=== PATIENT | male | born 2000 | race Caucasian/White ===

== ENCOUNTER 2020-10-03 07:19 | Emergency (ER) | payer OTHER ==
--- NOTE | 2020-10-03 07:24 | EDM.PDOC ---
ED HPI GENERAL MEDICAL PROBLEM - General Stated Complaint: FEVER Time Seen by Provider: 10/03/20 07:19 Source of Information: Reports: Patient History Limitations: Reports: No Limitations - History of Present Illness INITIAL COMMENTS - FREE TEXT/NARRATIVE: 20-year-old male with history of Covid 4 months ago presents with constitutional symptoms include fever, chills, diffuse myalgia, generalized malaise, diffuse mild headache, dizziness, anosmia since Friday afternoon. He denies cough, chest pain, abdominal pain, neck pain or neck stiffness, sore throat, runny nose. ROS: A 10-point review of systems, other than pertinent positives and negatives as stated per HPI, is otherwise negative Past medical history: No additional pertinent history Past Surgical history: No additional pertinent history Social history: No additional pertinent history Family history: No additional pertinent history PHYSICAL EXAM General: AOx4, GCS = 15, No distress HEENT: dry mucous membrane Neck: supple, no meningismus, no Kernig or Brudzinski Cardiac: S1S2 RRR Respiratory: CTAB, no crackles or rales, no wheezing Abdomen: Soft, nontender, no rebound or guarding, nondistended, no pulsatile mass. Back: nontender Musculoskeletal: NVI distally, no deformity Neuro: No focal deficits, CN 2 - 12 WNL. Headache Pain Score (Numeric/FACES): 8 - Related Data Allergies Allergy/AdvReac Type Severity Reaction Status Date / Time No Known Allergies Allergy Verified 10/03/20 07:32 Home Meds: Home Meds . [No Known Home Meds] 10/03/20 [History] ED ROS GENERAL - Review of Systems Review Of Systems: See Below (see dictation) ED EXAM, GENERAL - Physical Exam Exam: See Below (see dictation) Course - Vital Signs Last Recorded V/S: Last Vital Signs Temp 99.6 F 10/03/20 07:35 Pulse 104 H 10/03/20 08:39 Resp 20 10/03/20 08:39 BP 127/55 L 10/03/20 08:39 Pulse Ox 98 10/03/20 08:39 - Orders/Labs/Meds Orders: Active Orders 24 hr Category Date Time Status CULTURE BLOOD [BC] Stat Lab 10/03/20 07:55 Received CULTURE BLOOD [BC] Stat Lab 10/03/20 08:15 Received PROCALCITONIN [REF] Stat Lab 10/03/20 07:52 Received Sodium Chloride 0.9% [Saline Flush] Med 10/03/20 07:53 Active 10 ml FLUSH ASDIRECTED PRN Sodium Chloride 0.9% [Saline Flush] Med 10/03/20 07:53 Active 2.5 ml FLUSH ASDIRECTED PRN Blood Culture x2 Reflex Set [OM.PC] Stat Oth 10/03/20 07:54 Ordered Saline Lock Insert [OM.PC] Stat Oth 10/03/20 07:54 Ordered Medication Orders Sodium Chloride (Saline Flush) 10 ml FLUSH ASDIRECTED PRN PRN Reason: Keep Vein Open Last Admin: 10/03/20 07:58 Dose: 10 ml Documented by: GIORGIO Sodium Chloride (Saline Flush) 2.5 ml FLUSH ASDIRECTED PRN PRN Reason: Keep Vein Open Last Admin: 10/03/20 07:58 Dose: 2.5 ml Documented by: GIORGIO Labs: Laboratory Tests 10/03/20 10/03/20 10/03/20 Range/Units 07:52 07:52 07:52 WBC 5.60 (4.0-11.0) K/uL RBC 5.17 (4.50-5.90) M/uL Hgb 13.9 (13.0-17.0) g/dL Hct 42.2 (38.0-50.0) % MCV 81.6 (80.0-98.0) fL MCH 26.9 L (27.0-32.0) pg MCHC 32.9 (31.0-37.0) g/dL RDW Std Deviation 42.3 (28.0-62.0) fl RDW Coeff of Lius M 14 (11.0-15.0) % Plt Count 168 (150-400) K/uL MPV 10.90 (7.40-12.00) fL Neut % (Auto) 67.7 (48.0-80.0) % Lymph % (Auto) 24.6 (16.0-40.0) % Fleming % (Auto) 7.3 (0.0-15.0) % Eos % (Auto) 0.2 (0.0-7.0) % Baso % (Auto) 0.2 (0.0-1.5) % Neut # (Auto) 3.8 (1.4-5.7) K/uL Lymph # (Auto) 1.4 (0.6-2.4) K/uL Fleming # (Auto) 0.4 (0.0-0.8) K/uL Eos # (Auto) 0.0 (0.0-0.7) K/uL Baso # (Auto) 0.0 (0.0-0.1) K/uL Nucleated RBC % 0.0 /100WBC Nucleated RBCs # 0 K/uL INR APTT (18.6-31.3) SEC Lactate (0.20-2.00) mmol/L Sodium 138 (136-148) mmol/L Potassium 4.0 (3.5-5.1) mmol/L Chloride 105 (98-107) mmol/L Carbon Dioxide 22.4 (21.0-32.0) mmol/L BUN 13 (7.0-18.0) mg/dL Creatinine 1.3 (0.8-1.3) mg/dL Est Cr Clr Drug Dosing 86.96 mL/min Estimated GFR (MDRD) > 60.0 ml/min Glucose 128 H (74-106) mg/dL Calcium 8.7 (8.5-10.1) mg/dL Phosphorus 3.4 (2.6-4.7) mg/dL Magnesium 1.7 L (1.8-2.4) mg/dL Ferritin 230 (26-388) ng/mL Total Bilirubin 0.8 (0.2-1.0) mg/dL AST 42 H (15-37) IU/L ALT 74 H (14-63) IU/L Alkaline Phosphatase 156 H (46-116) U/L Lactate Dehydrogenase (81-234) U/L Creatine Kinase 66 (26-308) U/L C-Reactive Protein (0.00-0.90) mg/dL Total Protein 7.1 (6.4-8.2) g/dL Albumin 3.7 (3.4-5.0) g/dL Globulin 3.4 (2.6-4.0) g/dL Albumin/Globulin Ratio 1.1 (0.9-1.6) Influenza Type A RNA (NEGATIVE) Influenza Type B RNA (NEGATIVE) SARS-CoV-2 RNA (GARY) (NEGATIVE) 10/03/20 10/03/20 10/03/20 Range/Units 07:52 07:52 07:52 WBC (4.0-11.0) K/uL RBC (4.50-5.90) M/uL Hgb (13.0-17.0) g/dL Hct (38.0-50.0) % MCV (80.0-98.0) fL MCH (27.0-32.0) pg MCHC (31.0-37.0) g/dL RDW Std Deviation (28.0-62.0) fl RDW Coeff of Luis M (11.0-15.0) % Plt Count (150-400) K/uL MPV (7.40-12.00) fL Neut % (Auto) (48.0-80.0) % Lymph % (Auto) (16.0-40.0) % Fleming % (Auto) (0.0-15.0) % Eos % (Auto) (0.0-7.0) % Baso % (Auto) (0.0-1.5) % Neut # (Auto) (1.4-5.7) K/uL Lymph # (Auto) (0.6-2.4) K/uL Fleming # (Auto) (0.0-0.8) K/uL Eos # (Auto) (0.0-0.7) K/uL Baso # (Auto) (0.0-0.1) K/uL Nucleated RBC % /100WBC Nucleated RBCs # K/uL INR 1.13 APTT 25.4 (18.6-31.3) SEC Lactate 1.1 (0.20-2.00) mmol/L Sodium (136-148) mmol/L Potassium (3.5-5.1) mmol/L Chloride (98-107) mmol/L Carbon Dioxide (21.0-32.0) mmol/L BUN (7.0-18.0) mg/dL Creatinine (0.8-1.3) mg/dL Est Cr Clr Drug Dosing mL/min Estimated GFR (MDRD) ml/min Glucose (74-106) mg/dL Calcium (8.5-10.1) mg/dL Phosphorus (2.6-4.7) mg/dL Magnesium (1.8-2.4) mg/dL Ferritin (26-388) ng/mL Total Bilirubin (0.2-1.0) mg/dL AST (15-37) IU/L ALT (14-63) IU/L Alkaline Phosphatase (46-116) U/L Lactate Dehydrogenase 250 H (81-234) U/L Creatine Kinase (26-308) U/L C-Reactive Protein 5.50 H (0.00-0.90) mg/dL Total Protein (6.4-8.2) g/dL Albumin (3.4-5.0) g/dL Globulin (2.6-4.0) g/dL Albumin/Globulin Ratio (0.9-1.6) Influenza Type A RNA (NEGATIVE) Influenza Type B RNA (NEGATIVE) SARS-CoV-2 RNA (GARY) (NEGATIVE) 10/03/20 Range/Units 08:03 WBC (4.0-11.0) K/uL RBC (4.50-5.90) M/uL Hgb (13.0-17.0) g/dL Hct (38.0-50.0) % MCV (80.0-98.0) fL MCH (27.0-32.0) pg MCHC (31.0-37.0) g/dL RDW Std Deviation (28.0-62.0) fl RDW Coeff of Luis M (11.0-15.0) % Plt Count (150-400) K/uL MPV (7.40-12.00) fL Neut % (Auto) (48.0-80.0) % Lymph % (Auto) (16.0-40.0) % Fleming % (Auto) (0.0-15.0) % Eos % (Auto) (0.0-7.0) % Baso % (Auto) (0.0-1.5) % Neut # (Auto) (1.4-5.7) K/uL Lymph # (Auto) (0.6-2.4) K/uL Fleming # (Auto) (0.0-0.8) K/uL Eos # (Auto) (0.0-0.7) K/uL Baso # (Auto) (0.0-0.1) K/uL Nucleated RBC % /100WBC Nucleated RBCs # K/uL INR APTT (18.6-31.3) SEC Lactate (0.20-2.00) mmol/L Sodium (136-148) mmol/L Potassium (3.5-5.1) mmol/L Chloride (98-107) mmol/L Carbon Dioxide (21.0-32.0) mmol/L BUN (7.0-18.0) mg/dL Creatinine (0.8-1.3) mg/dL Est Cr Clr Drug Dosing mL/min Estimated GFR (MDRD) ml/min Glucose (74-106) mg/dL Calcium (8.5-10.1) mg/dL Phosphorus (2.6-4.7) mg/dL Magnesium (1.8-2.4) mg/dL Ferritin (26-388) ng/mL Total Bilirubin (0.2-1.0) mg/dL AST (15-37) IU/L ALT (14-63) IU/L Alkaline Phosphatase (46-116) U/L Lactate Dehydrogenase (81-234) U/L Creatine Kinase (26-308) U/L C-Reactive Protein (0.00-0.90) mg/dL Total Protein (6.4-8.2) g/dL Albumin (3.4-5.0) g/dL Globulin (2.6-4.0) g/dL Albumin/Globulin Ratio (0.9-1.6) Influenza Type A RNA NEGATIVE (NEGATIVE) Influenza Type B RNA NEGATIVE (NEGATIVE) SARS-CoV-2 RNA (GARY) NEGATIVE (NEGATIVE) Meds: Medications Generic Name Dose Route Start Last Admin Trade Name Freq PRN Reason Stop Dose Admin Sodium Chloride 10 ml 10/03/20 07:53 10/03/20 07:58 Saline Flush FLUSH 10 ml ASDIRECTED PRN Administration Keep Vein Open Sodium Chloride 2.5 ml 10/03/20 07:53 10/03/20 07:58 Saline Flush FLUSH 2.5 ml ASDIRECTED PRN Administration Keep Vein Open Discontinued Medications Generic Name Dose Route Start Last Admin Trade Name Giorgi PRN Reason Stop Dose Admin Diphenhydramine HCl 50 mg 10/03/20 09:34 10/03/20 09:44 Benadryl IVPUSH 10/03/20 09:35 50 mg ONETIME ONE Administration Lactated Ringer's 1,000 mls @ 999 mls/hr 10/03/20 07:53 10/03/20 07:58 Ringers, Lactated IV 10/03/20 08:53 999 mls/hr .BOLUS ONE Administration Ketorolac Tromethamine 30 mg 10/03/20 09:34 10/03/20 09:44 Toradol IVPUSH 10/03/20 09:35 30 mg ONETIME ONE Administration Metoclopramide HCl 10 mg 10/03/20 09:34 10/03/20 09:44 Reglan IVPUSH 10/03/20 09:35 10 mg ONETIME ONE Administration Ondansetron HCl 4 mg 10/03/20 07:49 10/03/20 08:27 Zofran Odt PO 10/03/20 07:50 Not Given ONETIME ONE Ondansetron HCl 4 mg 10/03/20 07:56 10/03/20 07:58 Zofran IVPUSH 10/03/20 07:57 4 mg ONETIME ONE Administration Ondansetron HCl Confirm 10/03/20 07:56 10/03/20 08:27 Zofran Administered 10/03/20 07:57 Not Given Dose 4 mg .ROUTE .[facility] ONE - Re-Assessments/Exams Free Text/Narrative Re-Assessment/Exam: 10/03/20 10:21 After IVF, Reglan, Benadryl, Toradol in the ER, the patient improved and is currently stable for discharge. I performed a repeat exam and did not appreciate new abnormal findings. Patient exhibits normal vital signs and has a normal gait on road test. I advised the patient to return to the ER for reevaluation if symptoms worsened, including fever, worsening pain, or any other worrisome symptoms. I instructed the patient to follow up with their PCP within 2-3 days. MEDICAL DECISION MAKING: I reviewed the patients past medical records, lab and radiographic findings. I discussed the case with the patient. My differential diagnosis included: Viral illness, Covid, influenza. Patient complains of mild diffuse headache, no nuchal rigidity or neck pain or neck stiffness, he was afebrile and no leukocytosis, I do not suspect meningitis or encephalitis. Departure - Departure Time of Disposition: 10:24 Disposition: Home, Self-Care 01 Condition: Good Clinical Impression: Viral illness - Discharge Information *PRESCRIPTION DRUG MONITORING PROGRAM REVIEWED*: Not Applicable *COPY OF PRESCRIPTION DRUG MONITORING REPORT IN PATIENT AVINASH: Not Applicable Instructions: Viral Illness, Adult Referrals: Sheng العلي MD [Primary Care Provider] - 1 Week Forms: ED Department Discharge Additional Instructions: The need for follow-up, as well as the timing and circumstances, are variable depending upon the specifics of your emergency department visit. If you don't have a primary care physician on staff, we will provide you with a referral. We always advise you to contact your personal physician following an emergency department visit to inform them of the circumstance of the visit and for follow-up with them and/or the need for any referrals to a consulting specialist. The emergency department will also refer you to a specialist when appropriate. This referral assures that you have the opportunity for follow-up care with a specialist. All of these measure are taken in an effort to provide you with optimal care, which includes your follow-up. Under all circumstances we always encourage you to contact your private physician who remains a resource for coordinating your care. When calling for follow-up care, please make the office aware that this follow-up is from your recent emergency room visit. If for any reason you are refused follow-up, please contact the [facility] Emergency Department at and asked to speak to the emergency department charge nurse. If you do not have a primary care doctor, please follow up with the clinics below within 3-5 days. [facility] - Primary Care [address] [place] [address] [place] [id number] [facility] [address] [place] [address] Sepsis Event Note (ED) - Focused Exam Vital Signs: Vital Signs Temp Pulse Resp BP Pulse Ox 10/03/20 08:39 104 H 20 127/55 L 98 10/03/20 07:35 99.6 F 103 H 18 126/51 L 96 - My Orders Last 24 Hours: My Active Orders 10/03/20 07:52 PROCALCITONIN [REF] Stat 10/03/20 07:53 Sodium Chloride 0.9% [Saline Flush] 10 ml FLUSH ASDIRECTED PRN Sodium Chloride 0.9% [Saline Flush] 2.5 ml FLUSH ASDIRECTED PRN 10/03/20 07:54 Blood Culture x2 Reflex Set [OM.PC] Stat Saline Lock Insert [OM.PC] Stat 10/03/20 07:55 CULTURE BLOOD [BC] Stat 10/03/20 08:15 CULTURE BLOOD [BC] Stat - Assessment/Plan Last 24 Hours: My Active Orders 10/03/20 07:52 PROCALCITONIN [REF] Stat 10/03/20 07:53 Sodium Chloride 0.9% [Saline Flush] 10 ml FLUSH ASDIRECTED PRN Sodium Chloride 0.9% [Saline Flush] 2.5 ml FLUSH ASDIRECTED PRN 10/03/20 07:54 Blood Culture x2 Reflex Set [OM.PC] Stat Saline Lock Insert [OM.PC] Stat 10/03/20 07:55 CULTURE BLOOD [BC] Stat 10/03/20 08:15 CULTURE BLOOD [BC] Stat
[2020-10-03] MEDS ORDERED: Ondansetron 4 MG Tab.DIS PO ONE (07:49)
[2020-10-03] MEDS ORDERED: Sodium Chloride 0.9% 2.5 ML Syringe FLUSH PRN (07:53)
[2020-10-03] MEDS ORDERED: Sodium Chloride 0.9% 10 ML Syringe FLUSH PRN (07:53)
[2020-10-03] MEDS ORDERED: Lactated Ringers 1,000 ML IV ONE (07:53)
[2020-10-03] MEDS ORDERED: Ondansetron 4 MG/2 ML SDV ONE (07:56)
[2020-10-03] MEDS ORDERED: Ondansetron 4 MG/2 ML SDV IVPUSH ONE (07:56)
[2020-10-03 08:24] LABS: BLOOD UREA NITROGEN,BUN 13 mg/dL (7.0-18.0); CARBON DIOXIDE,CO2 22.4 mmol/L (21.0-32.0); CHLORIDE,CL 105 mmol/L (98-107); GLUCOSE RANDOM 128 mg/dL (74-106); SODIUM,NA 138 mmol/L (136-148)
[2020-10-03 08:47] LABS: CORONAVIRUS COVID-19 NAA NEGATIVE (NEGATIVE); INFLUENZA A NAA NEGATIVE (NEGATIVE); INFLUENZA B NAA NEGATIVE (NEGATIVE)
[2020-10-03] MEDS ORDERED: Ketorolac 30 MG/ML SDV IVPUSH ONE (09:34)
[2020-10-03] MEDS ORDERED: diphenhydrAMINE 50 MG/ML SDV IVPUSH ONE (09:34)
[2020-10-03] MEDS ORDERED: Metoclopramide 10 MG/2 ML SDV IVPUSH ONE (09:34)
== END 2020-10-03 10:54 | disposition home or self-care (01) ==
LOC: MW.ED 07:19
DX: B34.9 Viral infection, unspecified (principal); Z20.822 Contact with and (suspected) exposure to COVID-19
CPT/HCPCS: 0240U; 36415; 80053; 82550; 82728; 83605; 83615; 83735; 84100; 84145; 85025; 85610; 85730; 86140; 87040; 96374; 96375; 99283; J1200; J1885; J2405; J2765; J7120

== ENCOUNTER 2022-01-07 20:22 | Emergency (ER) | payer OTHER ==
[2022-01-07] MEDS ORDERED: Ketorolac 30 MG/ML SDV IM ONE (20:36)
[2022-01-07 21:21] LABS: BLOOD UREA NITROGEN,BUN 24 mg/dL (7.0-18.0); CARBON DIOXIDE,CO2 27.3 mmol/L (21.0-32.0); CHLORIDE,CL 105 mmol/L (98-107); GLUCOSE RANDOM 117 mg/dL (74-106); POTASSIUM,K 4.3 mmol/L (3.5-5.1); SODIUM,NA 142 mmol/L (136-148)
== END 2022-01-07 22:08 | disposition home or self-care (01) ==
LOC: MW.ED 20:22
DX: N20.0 Calculus of kidney (principal); Z86.16 Personal history of COVID-19
CPT/HCPCS: 36415; 74176; 80048; 81001; 85025; 96372; 99284; J1885; 99283

== ENCOUNTER 2022-01-28 08:09 | Emergency (ER) | payer OTHER ==
[2022-01-28] MEDS ORDERED: Ibuprofen 600 MG Tab PO ONE (08:53)
[2022-01-28] MEDS ORDERED: Acetaminophen/HYDROcodone 325-5 MG Tab PO ONE (08:54)
[2022-01-28] MEDS ORDERED: Bacitracin Oint 1 GM U/D Packet TOP ONE (08:54)
== END 2022-01-28 09:47 | disposition home or self-care (01) ==
LOC: MW.ED 08:09
DX: T23.201A Burn of second degree of right hand, unspecified site, initial encounter (principal); Z86.16 Personal history of COVID-19; X08.8XXA Exposure to other specified smoke, fire and flames, initial encounter; Y99.0 Civilian activity done for income or pay
CPT/HCPCS: 16020; 99283; A9270

== ENCOUNTER 2022-09-17 00:50 | Emergency (ER) | payer OTHER ==
[2022-09-17] MEDS ORDERED: Sodium Chloride 0.9% 10 ML Syringe FLUSH PRN (01:09)
[2022-09-17] MEDS ORDERED: Sodium Chloride 0.9% 2.5 ML Syringe FLUSH PRN (01:09)
[2022-09-17 02:10] LABS: CARBON DIOXIDE,CO2 27.2 mmol/L (21.0-32.0)
[2022-09-17] MEDS ORDERED: Ondansetron 4 MG/2 ML SDV IVPUSH ONE (04:02)
[2022-09-17] MEDS ORDERED: fentaNYL 50 MCG/ML SDV IVPUSH ONE (04:03)
[2022-09-17] MEDS ORDERED: Ketorolac 30 MG/ML SDV IVPUSH ONE (04:11)
== END 2022-09-17 04:41 | disposition home or self-care (01) ==
LOC: MW.ED 00:50
DX: N13.5 Crossing vessel and stricture of ureter without hydronephrosis (principal)
CPT/HCPCS: 36415; 74176; 80053; 81003; 83690; 85025; 96374; 96375; 99284; J1885; J2405; J3490